=== PATIENT | male | born 1995 | race Caucasian/White ===

== ENCOUNTER 2019-12-09 09:35 | Emergency (ER) | payer OTHER ==
[2019-12-09 09:42] VITALS: BP 123/80; PULSE 100; TEMP 99.3; BMI 31.9
[2019-12-09] MEDS ORDERED: ACETAMINOPHEN 325 MG TABLET (FP) PO ONE (10:55)
[2019-12-09] MEDS ORDERED: ACETAMINOPHEN 325 MG TABLET (FP) ONE (11:06)
--- NOTE | 2019-12-09 11:08 | PDOC ---
History of Present Illness - General Chief Complaint: Respiratory Stated Complaint: COLD SYMPTOMS Time Seen by Provider: 12/09/19 10:31 History Source: Patient Exam Limitations: No Limitations Past History - Past Medical History Allergies/Adverse Reactions: Allergies Allergy/AdvReac Type Severity Reaction Status Date / Time ibuprofen [From Motrin] Allergy Verified 12/09/19 09:42 Home Medications: Ambulatory Orders No Home Medications 0 dose .ROUTE UTDICT 03/02/14 COPD: No - Psycho Social/Smoking Cessation Hx Smoking History: Never smoked Number of Cigarettes Smoked Daily: 1 Hx Alcohol Use: No Drug/Substance Use Hx: No Substance Use Type: None *Physical Exam - Vital Signs Last Vital Signs Temp Pulse Resp BP Pulse Ox 99.3 F 100 H 18 123/80 98 12/09/19 09:39 12/09/19 09:39 12/09/19 09:39 12/09/19 09:39 12/09/19 09:39 - Physical Exam General Appearance: No: Apparent Distress HEENT: positive: TMs Normal, Pharynx Normal Respiratory/Chest: positive: Chest Tender Cardiovascular: positive: Regular Rhythm, Regular Rate, S1, S2. negative: Murmur Gastrointestinal/Abdominal: positive: Normal Bowel Sounds, Soft. negative: Tender, Distended, Guarding, Rebound Integumentary: positive: Normal Color Neurologic: positive: Alert Medical Decision Making - Medical Decision Making 24-year-old male with no significant past medical history presents with fever, chills, body aches, cough, runny nose, congestion, sore throat for 3 days. Also endorses loose stools x2. Denies shortness of breath, chest pain, abdominal pain, nausea, vomiting. Denies recent travel. Appears well Likely viral syndrome Patient is past 48-hour window for starting flu treatment 12/09/19 11:06 Discharge - Discharge Information Problems reviewed: Yes Clinical Impression/Diagnosis: Viral upper respiratory illness Condition: Stable Disposition: HOME - Admission No - Additional Discharge Information Prescription Drug Monitoring Program (I-STOP) results: I-STOP not reviewed - Follow up/Referral - Patient Discharge Instructions Patient Printed Discharge Instructions: DI for Viral Upper Respiratory Infection -- Adult Additional Instructions: Thank you for choosing [facility]. It was a pleasure taking care of you. You have viral infection Alternate between Tylenol every 4 and Motrin every 6 hours as needed for fever Recommend rest and hydration Follow-up with your doctor in 2 days Return to the Emergency Department if your symptoms worsen or persist or have other concerning symptoms. - Post Discharge Activity
== END 2019-12-09 11:17 | disposition home or self-care (01) ==
LOC: JERFT 09:35
DX: J06.9 Acute upper respiratory infection, unspecified (principal); B97.89 Other viral agents as the cause of diseases classified elsewhere
CPT/HCPCS: 99282-25

== ENCOUNTER 2022-03-01 09:15 | Emergency (ER) | payer OTHER ==
[2022-03-01 09:32] VITALS: BP 125/80; PULSE 79; TEMP 98; BMI 39.8
[2022-03-01] MEDS ORDERED: FAMOTIDINE 20 MG/50 ML IVPB 20 MG/50 ML MG IVPB ONE (10:28)
[2022-03-01] MEDS ORDERED: SODIUM CHLORIDE 1,000 ML IV STA (10:28)
[2022-03-01] MEDS ORDERED: ACETAMINOPHEN 1000 MG/100 ML BAG IVPB ONE ×2 (10:40→12:51)
[2022-03-01] MEDS ORDERED: ACETAMINOPHEN INJECTION 100 ML IVPB ONE (11:12)
[2022-03-01] MEDS ORDERED: FAMOTIDINE 10 MG/ML VIAL IVPB ONE (11:13)
[2022-03-01 11:41] LABS: BASO % 0.5 % (0-2.0); HEMATOCRIT 46.5 % (35.4-49); HEMOGLOBIN 15.9 GM/dL (11.7-16.9); LYMPH % 22.6 % (8-40); MCH 29.9 pg (25.7-33.7); MCHC 34.1 g/dl (32.0-35.9); MEAN CELL VOLUME 87.6 fl (80-96); MEAN PLT VOLUME 7.4 fl (7.5-11.1); MONO % 10.1 % (3.8-10.2); NEUT % 63.8 % (42.8-82.8); PLATELET COUNT 307 10^3/uL (134-434); RBC 5.31 M/mm3 (4.00-5.60); RDW 13.1 % (11.9-15.9); WHITE BLOOD COUNT 6.6 K/mm3 (4.0-10.0)
[2022-03-01 11:48] LABS: PH,URINE 6.5 (5.0-8.0); URINE APPEARANCE CLEAR; URINE BILIRUBIN NEGATIVE (NEGATIVE); URINE COLOR YELLOW; URINE GLUCOSE (UA) NEGATIVE (NEGATIVE); URINE KETONE NEGATIVE (NEGATIVE); URINE LEUK ESTERASE NEGATIVE (NEGATIVE); URINE NITRITE NEGATIVE (NEGATIVE); URINE PROTEIN NEGATIVE (NEGATIVE)
[2022-03-01 12:08] LABS: BLOOD UREA NITROGEN 12.1 mg/dL (7-18); CALCIUM 9.2 mg/dL (8.5-10.1)
[2022-03-01 12:09] LABS: ALBUMIN 4.1 g/dl (3.4-5.0)
[2022-03-01 12:11] LABS: CREATININE 0.8 mg/dL (0.55-1.3)
[2022-03-01 12:13] LABS: BILIRUBIN,TOTAL 0.4 mg/dL (0.2-1); TOT PROT 8.1 g/dl (6.4-8.2)
[2022-03-01] MEDS ORDERED: MAG HYDROX/AL HYDROX/SIMETH -MYLANTA- ORAL SUSPENSION PO ONE (12:51)
[2022-03-01] MEDS ORDERED: MAG HYDROX/AL HYDROX/SIMETH 30 ML UNIT-DOSE CUP ONE (12:57)
== END 2022-03-01 13:40 | disposition home or self-care (01) ==
LOC: JER 09:15
PROC: 3E03329 Introduction of Other Anti-infective into Peripheral Vein, Percutaneous Approach (ICD-10-PCS; principal; 2022-03-01)
PROC: 3E0337Z Introduction of Electrolytic and Water Balance Substance into Peripheral Vein, Percutaneous Approach (ICD-10-PCS; 2022-03-01)
DX: R10.13 Epigastric pain (principal); R11.0 Nausea
CPT/HCPCS: 36415; 76705-TC; 80053; 81003; 83690; 85025; 99284-25

== ENCOUNTER 2022-07-14 10:22 | Emergency (ER) | payer OTHER ==
[2022-07-14 10:41] VITALS: BP 111/75; PULSE 79; RESP 18; TEMP 97.7; BMI 31.9
[2022-07-14] MEDS ORDERED: METHOCARBAMOL 500 MG TABLET PO ONE (11:09)
[2022-07-14] MEDS ORDERED: KETOROLAC TROMETHAMINE 30 MG/1 ML VIAL IM ONE (11:09)
[2022-07-14] MEDS ORDERED: predniSONE 20 MG TABLET (UD) PO ONE (11:09)
[2022-07-14] MEDS ORDERED: predniSONE 20 MG TABLET (UD) ONE (11:16)
[2022-07-14] MEDS ORDERED: METHOCARBAMOL 500 MG TABLET ONE (11:16)
[2022-07-14] MEDS ORDERED: KETOROLAC TROMETHAMINE 30 MG/1 ML VIAL ONE (11:16)
== END 2022-07-14 11:29 | disposition home or self-care (01) ==
LOC: JERFT 10:22
PROC: 3E0233Z Introduction of Anti-inflammatory into Muscle, Percutaneous Approach (ICD-10-PCS; principal; 2022-07-14)
DX: M54.50 Low back pain, unspecified (principal)
CPT/HCPCS: 99283-25

== ENCOUNTER 2023-11-01 10:44 | Emergency (ER) | payer OTHER ==
[2023-11-01 16:01] VITALS: BP 139/68; PULSE 88; RESP 18; TEMP 98; BMI 32.1
== END 2023-11-01 12:44 | disposition home or self-care (01) ==
LOC: JERFT 10:44
DX: R09.81 Nasal congestion (principal); R05.9 Cough, unspecified; J06.9 Acute upper respiratory infection, unspecified; Z20.822 Contact with and (suspected) exposure to COVID-19
CPT/HCPCS: 0241U-QW; 71046-TC-FY; 99284-25

== ENCOUNTER 2024-06-02 17:31 | Emergency (ER) | payer OTHER ==
[2024-06-02 17:38] VITALS: BP 107/74; PULSE 117; RESP 18; BMI 32.8
[2024-06-02] MEDS: SODIUM CHLORIDE 0.9% 500 ML INFUS.BAG IV ONE (18:12)
[2024-06-02] MEDS ORDERED: IBUPROFEN 400 MG TABLET (FP) PO ONE (18:29)
[2024-06-02] MEDS: IBUPROFEN 400 MG TABLET (FP) PO ONE (18:31)
[2024-06-02 19:58] VITALS: TEMP 99.2
== END 2024-06-02 20:08 | disposition home or self-care (01) ==
LOC: JER 17:31
DX: U07.1 COVID-19 (principal); R50.9 Fever, unspecified; R05.9 Cough, unspecified; R19.7 Diarrhea, unspecified
CPT/HCPCS: 0241U-QW; 99284-25

== ENCOUNTER 2024-06-16 10:11 | Emergency (ER) | payer OTHER ==
[2024-06-16 10:28] VITALS: BMI 32.8
[2024-06-16] MEDS ORDERED: IBUPROFEN 400 MG TABLET (FP) PO ONE (11:59)
[2024-06-16] MEDS: IBUPROFEN 400 MG TABLET (FP) PO ONE (12:04)
[2024-06-16] MEDS ORDERED: METOCLOPRAMIDE HCL INJECTION 10 MG/2 ML VIAL ONE (13:02)
[2024-06-16] MEDS: SODIUM CHLORIDE 0.9% 500 ML INFUS.BAG IV ONE (13:21)
[2024-06-16] MEDS: METOCLOPRAMIDE HCL INJECTION 10 MG/2 ML VIAL IVPUSH ONE (13:22)
[2024-06-16] MEDS: METOCLOPRAMIDE HCL INJECTION 10 MG/2 ML VIAL IM ONE (13:23)
[2024-06-16 13:26] LABS: BASO % 0.6 % (0-2.0); EOS % 0.7 % (0-4.5); HEMATOCRIT 41.5 % (35.4-49); HEMOGLOBIN 14.4 GM/dL (11.7-16.9); LYMPH % 15.7 % (8-40); MCH 29.6 pg (25.7-33.7); MCHC 34.6 g/dl (32.0-35.9); MEAN CELL VOLUME 85.4 fl (80-96); MEAN PLT VOLUME 6.7 fl (7.5-11.1); MONO % 5.5 % (3.8-10.2); NEUT % 77.5 % (42.8-82.8); PLATELET COUNT 447 10^3/uL (134-434); RBC 4.86 M/mm3 (4.00-5.60); RDW 12.9 % (11.9-15.9); WHITE BLOOD COUNT 13.8 K/mm3 (4.0-10.0)
[2024-06-16 14:02] LABS: POTASSIUM 4.6 mmol/L (3.5-5.1)
[2024-06-16 14:04] LABS: ALBUMIN 3.8 g/dl (3.4-5.0); BLOOD UREA NITROGEN 8.5 mg/dL (7-18)
[2024-06-16 14:07] LABS: CREATININE 0.9 mg/dL (0.55-1.3)
[2024-06-16 14:09] LABS: BILIRUBIN,TOTAL 0.7 mg/dL (0.2-1); TOT PROT 8.2 g/dl (6.4-8.2)
[2024-06-16 16:21] VITALS: BP 127/71; PULSE 97; RESP 18; TEMP 99
== END 2024-06-16 16:33 | disposition home or self-care (01) ==
LOC: JER 10:11
DX: R51.9 Headache, unspecified (principal); M54.50 Low back pain, unspecified; Z20.822 Contact with and (suspected) exposure to COVID-19
CPT/HCPCS: 0241U-QW; 36415; 70450-TC; 80053; 85025; 99284-25